=== PATIENT | male | born 1980 | race Caucasian/White ===

== ENCOUNTER 2019-09-27 11:41 | Emergency (ER) | payer MEDICAID, SELFPAY ==
[2019-09-27 11:42] VITALS: BP 162/104; PULSE 62; PULSE 70; RESP 14; TEMP 36.1; O2SAT 98; O2SAT 99; BMI 35.9
--- NOTE | 2019-09-27 11:48 | ED.VIS.GEN ---
History of Present Illness Chief Complaint: Laceration Informant: Patient Onset: Today Current Severity: Mild Maximum Severity: Mild Narrative: Patient presents with laceration to the right hand. He states he had used a pocket knife and laid it down on the sofa. When he went to stand up he cut his right hand with a pocket knife. He is right-hand dominant. He is unsure of his last tetanus update. He denies paresthesias or weakness. Past Medical History - Allergies and Home Meds Allergies/Adverse Reactions: Allergies No Known Allergies Allergy (Verified 09/27/19 11:42) Primary Care Physician: Main Vilchis MD [Primary Care Provider] - Lives: With Family Smoking Status: Never smoker Review of Systems General: Denies: Chills, Fever Eyes: Denies: Visual changes - bilaterally ENT: Denies: Bilateral ear pain Cardiovascular: Denies: Chest pain Respiratory: Denies: Dyspnea Gastrointestinal: Denies: Abdominal pain Musculoskeletal: Reports: Extremity Pain Skin: Reports: Wounds Neurological: Denies: Weakness, Parasthesia Hematologic: Denies: Easy bruising, Easy bleeding Allergy: Denies: Uticaria Physical Exam Vital Signs/Narrative: Vital Signs Temp Pulse Resp BP Pulse Ox 09/27/19 11:42 96.9 F L 70 14 162/104 H 99 Inital Vital Signs reviewed: Yes General: Well nourished, Well developed Head: Normocephalic ENT: Moist mucous membranes Neck: Supple Cardiovascular: Regular rate, Regular rhythm Respiratory: No distress Extremities: - - 4 mm laceration to the base of the hyperthenar eminence on the right palm. Mild bleeding noted. Good cap refill distally with full range of motion. Neurological: Alert, Oriented x3, Normal Strength, Normal Sensation Psychological: Normal affect Diagnostic/Tx/Re-eval - Medical Decision Making Tetanus update is provided. Laceration to the right hand is cleansed and sealed with Dermabond. Dressing is applied. Wound care is discussed. ED Disposition - Plan for ED Patient: Disposition: Home or Assisted Living Diagnosis: Hand laceration Instructions: ED Laceration Ext Skin Glue
[2019-09-27] MEDS: Diphth,Pertuss(Acell),Tet Vac 0.5 ML Vial IM (12:05)
== END 2019-09-27 12:22 | disposition home or self-care (01) ==
LOC: ED 12:17
PROVIDERS: Emergency Provider Emergency Medicine; PCP Internal Medicine
DX: S61.411A Laceration without foreign body of right hand, initial encounter (principal); W26.0XXA Contact with knife, initial encounter; Y93.9 Activity, unspecified; Y92.9 Unspecified place or not applicable
CPT/HCPCS: 12001; 90715; 99283

== ENCOUNTER 2020-01-28 19:32 | Emergency (ER) | payer OTHER, MEDICAID, SELFPAY ==
[2020-01-28 19:34] VITALS: BP 174/96; PULSE 77; RESP 18; TEMP 36.2; O2SAT 99; BMI 38.9
--- NOTE | 2020-01-28 20:00 | RAD_ITS ---
STUDY: X-RAY - RIGHT KNEE REASON FOR EXAM: Male, 39 years old. Fall. Right knee pain and bruising. TECHNIQUE: 4 view(s) of the knee. COMPARISON: None. FINDINGS: Normal visualized distal femur. Normal visualized proximal tibia and fibula. Normal proximal tibiofibular articulation. There is no demonstrated fracture. Normal medial femorotibial compartment. Normal lateral femorotibial compartment. There is mild degenerative arthrosis of the patellofemoral articulation. The soft tissue structures are unremarkable. RAD/Knee 4 or More Views IMPRESSION: No fracture. Mild patellofemoral spurring. Electronically Signed: Garland Soler MD at 22:31 EST , Service support ,
--- NOTE | 2020-01-28 22:40 | DCINST.ED_ITS ---
ED Disposition - Plan for ED Patient: Instructions: ED Sprain Knee Referrals: Sherie Wiley MD [Primary Care Provider] - [facility] [GROUP OF PHYSICIANS] -
--- NOTE | 2020-01-28 22:40 | ED.DEP ---
ED Disposition - Plan for ED Patient: Instructions: ED Sprain Knee Referrals: Sherie Wiley MD [Primary Care Provider] - [facility] [GROUP OF PHYSICIANS] -
--- NOTE | 2020-01-28 22:42 | ED.VISSUMM ---
- ER Visit Summary Date of Service: 01/28/20 Chief Complaint: Right knee injury History of Present Illness: The patient is a 39 M presenting after right knee injury. Patient states he was at work. He tripped over a cord of a fan and fell landing on his right knee. He has been able to ambulate since the fall. Denies other injuries. Physical Examination: Vitals are stable. Patient is afebrile. Alert no acute distress. HEENT exam is unremarkable. Neck is supple. Lungs are clear and equal bilaterally. Heart is regular rate and rhythm. Extremities mild right lateral and anterior knee tenderness. Active full range of motion. Normal distal pulses. Skin is warm and dry. Remainder of exam is unremarkable. Emergency Department Course and Treatment: X-ray right knee shows No fracture. Mild patellofemoral spurring. He is given Naprosyn. He is advised to ice and elevate. Advised to follow-up with [facility]. He declined crutches. Advised return to the ED for worsening complaints. Disposition: Discharge home Impression: Right knee contusion This note was generated with [employer] dictation software. It may contain incorrect words, spelling, and punctuation that were not noted in review of the chart prior to signing ED Disposition - Plan for ED Patient: Instructions: ED Sprain Knee Referrals: [facility] [GROUP OF PHYSICIANS] - Sherie Wiley MD [Primary Care Provider] -
[2020-01-28] MEDS: Naproxen 500 MG Tablet PO (22:49)
[2020-01-28 22:50] VITALS: BP 135/68; PULSE 65; RESP 17; O2SAT 98
== END 2020-01-28 22:50 | disposition home or self-care (01) ==
LOC: ED 20:36
PROVIDERS: Emergency Provider Emergency Medicine; PCP Family Medicine
DX: S80.01XA Contusion of right knee, initial encounter (principal); W01.0XXA Fall on same level from slipping, tripping and stumbling without subsequent striking against object, initial encounter; Y93.9 Activity, unspecified; Y92.9 Unspecified place or not applicable
CPT/HCPCS: 73564; 99282

== ENCOUNTER 2021-05-10 09:21 | Emergency (ER) | payer MEDICAID, SELFPAY ==
[2021-05-10 09:23] VITALS: BP 187/113; PULSE 71; RESP 16; TEMP 36.3; O2SAT 98; BMI 38.3
--- NOTE | 2021-05-10 09:44 | EDS_ITS ---
HPI History of Present Illness Chief Complaint: Other, Pain/Inj Detail of Chief Complaint: Facial injury after a fall today Informant: patient Narrative Narrative: Patient presents to the emergency department after sustaining a fall this morning around 3 AM. Patient states that he had use the bathroom and slipped on the floor and struck his face on the side of the tub. No loss of consciousness. He did have bleeding from both sides of the nose that stopped pretty quickly. Patient felt a crunching sensation when he hit the tub. He is not on blood thinners. He denies neck pain. He denies any other injuries. [facility] Home Medications NK 01/28/20 [History Last Taken Unknown] Allergy/AdvReac Type Severity Reaction Status Date / Time No Known Allergies Allergy Verified 05/10/21 09:22 Social History Smoking Status: Never smoker ROS ROS ED Constitutional Constitutional ED: Reports systems reviewed and no addt'l complaints, except as documented; Denies body ache(s), change in weight or chills Eyes Eyes: Denies acute decrease in peripheral vision, change in vision, double vision or loss of vision ENT ENT ED: Reports none and other Details: Nasal pain after injury ; Denies ear pain, lip swelling, loss taste/smell, neck pain, otalgia or sore throat Cardiovascular Cardiovascular: Reports none; Denies abdominal pain, chest pain with activity, leg edema, lightheadedness, palpitations, rapid heart rate or syncope Respiratory/Chest Respiratory/Chest: Reports none; Denies change in mental status, dry cough, dyspnea, hemoptysis, shortness of breath at rest or shortness of breath with exertion Gastrointestinal Gastrointestinal: Reports none; Denies abdominal pain, change in stool character, diarrhea, hematemesis, hematochezia, melena, rectal bleeding or vomiting Genitourinary Genitourinary ED: Reports none; Denies abdominal discomfort, anuria, dysuria, genital pain or polyuria Musculoskeletal Musculoskeletal: Reports none; Denies arthralgias, back pain, difficulty walking, extremity pain, muscle weakness or myalgias Integumentary Reports none; Denies abscess or rash Neurologic Neurologic: Reports none; Denies abnormal gait, confusion, focal weakness, frequent falls, headache(s), loss of vision, numbness, paresthesias, radicular pain, vertigo or weakness Psychiatric Psychiatric: Reports systems reviewed and no addt'l complaints, except as documented and none; Denies behavioral changes, confusion, difficulty concentrating, hallucinations, suicidal ideation, tactile hallucinations or visual hallucinations Endocrine Endocrinology: Denies none, cold intolerance, excessive sweating, fatigue or heat intolerance Hematologic/Lymphatic Hematologic/Lymphatic: Reports none; Denies anemia, easy bleeding or easy bruising Allergic/Immunologic Allergic/Immunologic ED: Denies as per HPI, none, lip swelling, mouth swelling, throat swelling, tongue swelling or hives EXAM Physical Exam Const Vital Signs: 05/10/21 09:23 Temperature 97.3 F L Temperature Source Temporal Pulse Rate 71 Respiratory Rate 16 Blood Pressure 187/113 H Blood Pressure Mean 137 Pulse Ox 98 Oxygen Delivery Method Room Air Positive well nourished and well developed General Appearance ED: well developed and NAD HEENT Reports TM's clear and moist mucous membranes HEENT Narrative: Patient has minimal tenderness over the tip of the nasal bone with no obvious deformity and no obvious crepitus noted on exam. There is no septal hematoma. Patient has no tenderness over the zygomatic arches or the orbits. No tenderness over the maxilla. Midface is stable. No tenderness over the mandible. normocephalic and atraumatic; Negative for trauma or tenderness Tympanic Membrane ED: Yes TM's clear Eyes PERRL and EOMs intact bilaterally General Eye ED: Negative for pale conjunctiva or scleral icterus Neck no lymphadenopathy, supple and no JVD General: Negative for tenderness Chest Wall inspection of chest normal and palpation of chest normal Chest: Negative for tenderness Resp normal respiratory effort and clear to auscultation bilaterally Effort and Inspection: Negative for respiratory distress or pain with movement Auscultation: Negative for rhonchi, wheezes or diminished lung sounds Cardio regular rate, regular rhythm, S1 normal heart sound, S2 normal heart sound and no murmurs Peripheral Pulses: pulses 2+ throughout GI normal to inspection, nondistended, normoactive bowel sounds, soft to palpation, non-tender, non-distended and no masses Back/Spine no CVA tenderness and no thoracic nor lumbar tenderness Extremity normal to inspection General Extremety ED: Negative for edema General Extremity: Negative for edema Neuro oriented x3, CN's II-XII intact bilaterally, no sensory deficits noted and gait normal Sensorium / Orientation: awake, alert, oriented to person, oriented to place and oriented to time Motor Exam: strength 5/5 throughout and strength abnormal Psych mental status grossly normal Skin no rashes or lesions noted and no wounds MDM MDM MDM Narrative Medical decision making narrative: Clinically the nose does not appear fractured or deformed. We discussed obtaining x-rays versus conservative treatment and follow-up with ENT. At this point is not having any difficulty breathing. We will forego x-rays. I suspect likely a nasal contusion although cannot rule out a nondisplaced nasal bone fracture. No other evidence of trauma to the facial bones noted. Patient advised use ibuprofen Tylenol for discomfort. He is to use ice to the area. Patient will be referred to ENT for follow-up. Discharge Plan Triage Chief Complaint: Other, Pain/Inj ED Provider: Chris Solorzano Dx/Rx/DC Orders Clinical Impression: Contusion of nose Instructions: ED NASAL CONTUSION vs FX No X-ray Prescriptions: No Action NK RF: 0 Primary Care Provider: Sherie Wiley Referrals: Sherie Wiley MD [Primary Care Provider] - Tiago Wilks MD [STAFF PHYSICIAN] - 5-7 Days Disposition Disposition: Home, Self Care
== END 2021-05-10 10:09 | disposition home or self-care (01) ==
LOC: ED 10:06
PROVIDERS: Emergency Provider Emergency Medicine; PCP Family Medicine; Visit Provider Emergency Medicine
DX: S00.33XA Contusion of nose, initial encounter (principal); W01.190A Fall on same level from slipping, tripping and stumbling with subsequent striking against furniture, initial encounter; Y93.9 Activity, unspecified; Y92.012 Bathroom of single-family (private) house as the place of occurrence of the external cause
CPT/HCPCS: 99282

== ENCOUNTER 2022-05-17 11:30 | Outpatient (RCR) | payer OTHER, MEDICAID, SELFPAY ==
--- NOTE | 2022-03-13 12:51 | HP.OTEVAL ---
Patient's Visit Information CYRIL ROTH is a 41 year old M, referred to Occupational Therapy by EUGENIA DODD, with a diagnosis of left distal biceps tendon rupture. Date of Evaluation: 03/13/22 Occupational Therapist: Vicky Shah, EMERYR/Linda, CHT - Subjective This 41 year old male was seen for OT eval with dx of left distal biceps rupture. 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 Pt work for [employer], typically puts parts together and lifts 10-40#. Pt states DOI [id number]. [facility] [place] [facility] to Dr. Dodd for sx on 2021. pt has children ages 10, 12, 13, 15. pt is right handed. with pt. to provide support. pt reports limitations with use of left UE with ADLs and IADLs at this time. pt reports understanding of lifting precautions of 8oz. pt would like to return to his PLOF. - Pain left arm 2 Pain Intensity Range: 0, 2 - ROM Elbow: right+5/140 left -30/110 Forearm: right supination 70* pron WNL left supination 20* pronation 40 Wrist: right/left WNL - Strength Grill Chef: right 130# left NT Lateral Pinch: right 18# left NT Tripod Pinch: right 20# left NT Strength Comments: will test left at later date - Sensation Sensation Comments: pt reports dorsal forearm tingling ( possible from strap on brace) - Quick DASH-Disab of Arm,Shoulder& Hand Quick DASH Score: 62.5000 - Goals Goal:100% adherence to protocol: Yes Comment: Dr. Dodd Distal Biceps repair Protocol Goal:Daily scar massage when approriate: Yes Goal:ROM equal to unaffected hand: Yes Goal:Grill Chef/Pinch strength at least 75% of unaffected hand: Yes Goal:No pain with affected hand use: Yes Goal:Full use of affected hand in daily activities including: Yes - Rehabilitation General Assessment: pt arrives s/p 3 weeks from left distal biceps tendon repair. pt demo need for skilled OT services 1-2x week for 8 weeks to assist pt in recovery from distal biceps repair to return pt to PLOF. Today therapist ed. pt on Dr. Dodd's distal biceps protocol, and reviewed allowed exercise of left elbow ROM with forearm in pronation, and forearm supination/pronation with elbow at 90* and at his side, therapist ed. pt to allow for squeeze of sponge, and scar mtg. pt was given handout and protocol, pt and pts demo understanding agree to POC. Rehabilitation Potential: Good - Anticipated Interventions A/AAROM/PROM, Strengthening, Scar Care, Triggerpoint Release, Modalities, Orthoses, Joint Protection/Energy Conservation, Ergonomic Education, Education re Diagnosis, Caregiver Training, Home Program - Visit Plan Frequency: 1-2x /Week Duration: 2 Months TEXT: Thank you for the opportunity to evaluate your patient. For Medicare and Medicare HMO plans, please review the plan of care and approve it. It will need to be FAXED BACK to us at [phone] for Medicare purposes. Please let me know if there are questions or concerns regarding this plan of care. Physician Signature: Date:
--- NOTE | 2022-04-03 09:41 | OTREVAL_ITS ---
EUGENIA DODD, It has been my pleasure to treat CYRIL Cervantes VIA over the last 7 visits for left distal biceps tendon rupture. Please see the progress note below for an update on the occupational therapy plan of care! Subjective: pt arrives 6 weeks s/p from distal biceps tendon repair. pt states he is feeling good. states compliance with his scapular stabilization home program including horizontal abduction, ER/IR with t-bands, and elbow at 90* and shoulder extension with bands, all focusing on scapular setting. pt states he is performing 3x a day - and end range motion every hour. pt is using hinge elbow brace only out of the house and at night (therapist advised with his children around to wear it) Objective/Function: left forearm supination 60 *. pronation 60* ( right 70*). left elbow -5/ 130* with PROM pt can get 140* elbow flexion. left open hearth worker strength 65# right 95#. pt making good gains with his ROM. therapy will transition pt to PRE as allows based on pts progress and healing. Plan Frequency: 1-2x /Week Duration: 4 Weeks Plan: Dr. Dodd Distal Bicep Repair Protocol. 2-4 weeks s/p. Ed pt on finger, thumb, wrist and shoulder ROM with forearm Neutral. NO Lifting over 8oz (cell phone). Begin Pronation/Supination with elbow at 90* flexion to tolerance. *Begin elbow flexion/extension to tolerance with forearm in supination (6x per day). May initiate open hearth worker strength (sponge). Progress to full elbow extension in pronation as tolerated after achieved in supination. Jessica pt can easily attain full extension without pain, orthosis can be d/c during the day. Continue sling until 4 weeks or until full extension of elbow is achieved if longer than 4 weeks. 4 weeks post-op. Continue to work on elbow extension with elbow pronated. Begin scapular stabilization program including horizontal abduction, ER/IR with t-bands, and elbow at 90* and shoulder extension with bands, all focusing on scapular setting. Once full AROM is achieved with full rotation, and elbow extension in pronation, pt does not need to return until beginning strengthening,. 8 week post-op Begin strengthening up to 10# and advanced as tolerated between 8-12 weeks s/p. Goals - Goals Patient Goals: Decrease Pain, Return to Work, Use Hand/Wrist/Arm Normally Again Goal:100% adherence to protocol: Yes Goal:Daily scar massage when approriate: Yes Goal:ROM equal to unaffected hand: Yes Goal:Rag Sorter/Pinch strength at least 75% of unaffected hand: Yes Goal:No pain with affected hand use: Yes Goal:Full use of affected hand in daily activities including: Yes Anticipated Interventions Anticipated Interventions: A/AAROM/PROM, Strengthening, Scar Care, Triggerpoint Release, Modalities, Orthoses, Joint Protection/Energy Conservation, Ergonomic Education, Education re Diagnosis, Caregiver Training, Home Program Please do not hesitate to contact me at [phone] by phone or if you have questions or concerns regarding this new plan of care! Sincerely, Vicky Shah OTR/L, CHT
--- NOTE | 2022-05-17 11:53 | OTREVAL_ITS ---
EUGENIA PRINCE, It has been my pleasure to treat CYRIL ROTH over the last 5 visits for left distal biceps tendon rupture. Please see the progress note below for an update on the occupational therapy plan of care! Subjective: Pt arrives 12 weeks and 2 days s/p from distal biceps tendon repair. Pt is consistent in attending therapy sessions and reports compliance with His HEP of scapular stabilization program including horizontal abduction, ER/IR with t-bands, and elbow at 90* and shoulder extension with bands, all focusing on scapular setting-. Blue t-band resistance. pt denies pain, tingling or numbness. pt reports IND with ADLs and IADLS. only in Hinge brace when out of home and when he is sleeping to increase comfort when rolling and sleeping on his left side. Objective/Function: LUE: sup: 89* Pro: 78* ( feeling slight pull in forearm). Elbow ROM -5/135 increase from -30/110*. 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 pt demo functional ROM of left UE following distal biceps tendon repair-. fit2 peak forces in pound of resistance. right biceps 39# left 22#. right triceps 29# left 29#. right shoulder flex 12# left 12#. pt working on HEP of scapular stabilization program blue t-band doing at least 2x a day. In OT pt working on PRE as tolerated- work simulation with ergo with lifting. pt has done well. Plan Visits in this POC: will see dr castroendatalya Plan: pts heaviest work lift is 20#. in simulation in OT pt feel good with lift of this wt. pt to see for further therapy guidance and/or release to work. Goals - Goals Patient Goals: Decrease Pain, Return to Work, Use Hand/Wrist/Arm Normally Again Goal:100% adherence to protocol: Yes Goal:Daily scar massage when approriate: Yes Goal:ROM equal to unaffected hand: Yes Goal:Candy Decorator/Pinch strength at least 75% of unaffected hand: Yes Goal:No pain with affected hand use: Yes Goal:Full use of affected hand in daily activities including: Yes Anticipated Interventions Anticipated Interventions: A/AAROM/PROM, Strengthening, Scar Care, Triggerpoint Release, Modalities, Orthoses, Joint Protection/Energy Conservation, Ergonomic Education, Education re Diagnosis, Caregiver Training, Home Program Please do not hesitate to contact me at [phone] by phone or if you have questions or concerns regarding this new plan of care! Sincerely, Vicky Shah OTR/L, CHT
--- NOTE | 2022-08-10 13:45 | HP.OTDCSUM ---
It has been my pleasure to treat CYRIL ROTH under orders from EUGENIA PRINCE, for the diagnosis of left distal biceps tendon rupture for a total of 5 visit(s). Please see the following information for a summary of their discharge status. pt last seen on 05/17/22 Due to time lapse in services pt d/c at this time. % Improvement: 85 Objective/Function: LUE: sup: 89* Pro: 78* ( feeling slight pull in forearm). Elbow ROM -5/135 increase from -30/110*. 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 pt demo functional ROM of left UE following distal biceps tendon repair-. fit2 peak forces in pound of resistance. right biceps 39# left 22#. right triceps 29# left 29#. right shoulder flex 12# left 12#. pt working on HEP of scapular stabilization program blue t-band doing at least 2x a day. In OT pt working on PRE as tolerated- work simulation with ergo with lifting. pt has done well. Patient Goals: Decrease Pain, Return to Work, Use Hand/Wrist/Arm Normally Again Goal:100% adherence to protocol: Yes Goal:Daily scar massage when approriate: Yes Goal:ROM equal to unaffected hand: Yes Goal:Director Of Optimization/Pinch strength at least 75% of unaffected hand: Yes Goal:No pain with affected hand use: Yes Goal:Full use of affected hand in daily activities including: Yes Plan: pts heaviest work lift is 20#. in simulation in OT pt feel good with lift of this wt. pt to see for further therapy guidance and/or release to work. If there are questions or concerns regarding this patient's occupational therapy, please fell free to call me at [phone]. Thank you for the referral of this patient. Sincerely, Vicky Shah, OTR/L, CHT
== END 2022-05-17 19:00 | disposition home or self-care (01) ==
LOC: OT 11:30
PROVIDERS: PCP Family Medicine
DX: S46.212D Strain of muscle, fascia and tendon of other parts of biceps, left arm, subsequent encounter (principal)
CPT/HCPCS: 97110; 97140; 97166; 97530

== ENCOUNTER 2023-06-03 09:08 | Emergency (ER) | payer MEDICAID, SELFPAY ==
[2023-06-03 09:09] VITALS: BP 179/90
[2023-06-03 09:11] VITALS: BP 190/92; PULSE 72; RESP 18; TEMP 35.2; O2SAT 100; BMI 39.2
--- NOTE | 2023-06-03 09:15 | CT_ITS ---
STUDY: CT ABDOMEN AND PELVIS WITHOUT CONTRAST REASON FOR EXAM: Male, 42 years old. LT FLANK PAIN RADIATION DOSAGE (If Supplied By Facility): CTDIvol = ( 22.12 ) mGy, DLP = ( 1221.31 ) mGycm TECHNIQUE: Transaxial images were obtained from the dome of the diaphragm to the symphysis pubis without oral contrast, and without intravenous contrast. Sagittal and coronal images were reconstructed. Individualized dose optimization techniques were used for this CT. COMPARISON: None. FINDINGS: The visualized lung bases are unremarkable. The visualized portions of the heart are within normal limits. There is hepatomegaly with diffuse hepatic enlargement. There is decreased attenuation of the liver consistent with steatosis. Normal gallbladder and extrahepatic biliary system. Normal spleen. There is enlargement of the head and uncinate process of the pancreas with daria-pancreatic edema suggesting acute pancreatitis. Normal bilateral adrenal glands. Normal right kidney. There is mild hydronephrosis or parapelvic cysts of the left kidney. Normal visualized stomach. Normal small intestine. Normal colon. The appendix is visualized and appears normal. There is atherosclerotic calcification of the abdominal aorta, without a demonstrated aneurysm. Normal inferior vena cava. Normal retroperitoneum. Normal urinary bladder. There is no free fluid in the abdomen or pelvis. Normal abdominal wall. There are diffuse degenerative changes of the visualized lumbar spine. CT/Abdomen/Pelvis without Cont IMPRESSION: Acute pancreatitis. No fluid collection or pseudocyst. Liver is enlarged with fatty infiltration. No biliary dilation. Mild left hydronephrosis versus parapelvic cysts. No stones are seen. Electronically Signed: Garland Soler MD at 11:00 EDT ,
--- NOTE | 2023-06-03 09:16 | EDS_ITS ---
HPI History of Present Illness Chief Complaint: Flank Pain Informant: patient Narrative Narrative: Patient presents with left flank pain. He states for the past week or 2 has had some mild pain in his left back. This morning he had more severe pain that wraps around to the groin. He denies history of kidney stones. No urinary changes. No prior abdominal surgeries. [facility] Medical History (Updated 06/03/23 @ 12:[address] Jacquie Crouch MD) Diabetes Hypercholesteremia Hypertension Home Medications hydrocodone-acetaminophen 5-325mg 5mg-325mg 1 tab PO Q6H PRN PRN Pain 3 days #10 TABLETS 06/03/23 [Rx Last Taken Unknown] ondansetron 4 mg disintegrating tablet 4 mg PO Q8H PRN PRN Nausea #10 tabs 06/03/23 [Rx Last Taken Unknown] Allergy/AdvReac Type Severity Reaction Status Date / Time No Known Allergies Allergy Verified 06/03/23 09:15 Surgical History (Updated 06/03/23 @ 09:17 by Miladis Ley) History of surgery on arm Social History Smoking Status: Never smoker ROS ROS ED Constitutional Constitutional ED: Denies chills or fever(s) Eyes Eyes: Denies change in vision or discharge from eye(s) ENT ENT ED: Denies discharge from eye(s), rhinorrhea or sore throat Cardiovascular Cardiovascular: Denies chest pain or palpitations Respiratory/Chest Respiratory/Chest: Denies cough or dyspnea Gastrointestinal Gastrointestinal: Reports abdominal pain, nausea and vomiting; Denies diarrhea Genitourinary Genitourinary ED: Denies dysuria Musculoskeletal Musculoskeletal: Reports back pain; Denies extremity pain Integumentary Denies Abrasions or rash Neurologic Neurologic: Denies headache(s) or weakness Psychiatric Psychiatric: Denies anxiety or depression Allergic/Immunologic Allergic/Immunologic ED: Denies lip swelling or urticaria EXAM Physical Exam Const Vital Signs: 06/03/23 09:11 06/03/23 09:09 06/03/23 11:09 Temperature 95.3 F L Temperature Source Temporal Pulse Rate 72 60 Respiratory Rate 18 18 Blood Pressure 190/92 H 179/90 H 171/92 H Blood Pressure Mean 124 119 118 Pulse Ox 100 92 Oxygen Delivery Method Room Air Room Air Positive well nourished and well developed General Appearance ED: well developed HEENT Reports moist mucous membranes Eyes EOMs intact bilaterally Chest Wall inspection of chest normal and palpation of chest normal Resp normal respiratory effort and clear to auscultation bilaterally Cardio regular rate and regular rhythm GI non-tender Palpation: soft Back/Spine General Back: CVA tenderness left Extremity normal to inspection Neuro oriented x3 and no sensory deficits noted Motor Exam: strength 5/5 throughout Psych mental status grossly normal Skin no rashes or lesions noted MDM MDM MDM Narrative Medical decision making narrative: IV line established. Patient given morphine, Toradol, Zofran, IV fluids. Labwork obtained to evaluate for leukocytosis, anemia, and electrolyte derangement. Urinalysis obtained to evaluate for infection/hematuria. CT flank obtained to evaluate for potential renal stone. Differential diagnosis includes diverticulitis, bowel obstruction, ureterolithiasis. History & Record Review Discussion w/independent historian: Patient Lab Data Attestation: I reviewed the patient's lab results. Labs: Laboratory Results - last 24 hr 06/03/23 06/03/23 06/03/23 09:17 10:40 10:56 WBC 8.3 RBC 5.54 Hgb 15.2 Hct 45.8 MCV 82.7 MCH 27.4 MCHC 33.2 RDW Std Deviation 39.9 RDW Coeff of Lesly 13.2 Plt Count 278 MPV 11.0 Immature Gran % (Auto) 0.500 Neut % (Auto) 52.0 Lymph % (Auto) 33.7 [place] % (Auto) 11.2 H Eos % (Auto) 2.1 Baso % (Auto) 0.5 Absolute Neuts (auto) 4.3 Absolute Lymphs (auto) 2.79 Nucleated RBC % 0 Sodium 139 Potassium 3.6 Chloride 105 Carbon Dioxide 28.0 Anion Gap 6 BUN 17 Creatinine 1.06 Estim Creat Clear Calc 125.83 Est GFR (MDRD) Af Amer 98 Est GFR (MDRD) Non-Af 81 BUN/Creatinine Ratio 16.0 Glucose 149 H Calcium 9.3 Total Bilirubin 0.80 Direct Bilirubin 0.19 AST 17 ALT 29 Alkaline Phosphatase 93 Total Protein 8.0 Albumin 3.6 Globulin 4.4 H Lipase 46 Urine Color Yellow Urine Clarity Clear Urine pH 6.5 Ur Specific [place] 1.010 Urine Protein 30 H Urine Glucose (UA) Normal Urine Ketones Negative Urine Occult Blood Negative Urine Nitrite Negative Urine Bilirubin Negative Urine Urobilinogen Normal Ur Leukocyte Esterase 25 H Urine RBC 0 SEEN Urine WBC 0 SEEN Ur Squamous Epith Cells 0 SEEN Urine Bacteria 0 SEEN Urine Mucus 0 SEEN POC Glucose 137 H Radiography Diagnostic Testing: Clinical Impression(s) from Imaging Studies Abdomen/Pelvis CT 06/03/23 09:15 IMPRESSION: Acute pancreatitis. No fluid collection or pseudocyst. Liver is enlarged with fatty infiltration. No biliary dilation. Mild left hydronephrosis versus parapelvic cysts. No stones are seen. Electronically Signed: Garland Soler MD at 11:00 EDT , Treatment and Re-Evaluation :: On repeat evaluation patient resting comfortably. Pain is improved. CBC was normal white count 8.3 with normal differential. Hemoglobin is 15.2. Chemistry studies unremarkable. Glucose is 149. LFTs normal. Lipase is normal at 46. Urinalysis reveals no evidence of acute infection and no hematuria. CT flank reveals evidence of mild pancreatic inflammation consistent with acute pancreatitis. Mild left hydronephrosis is noted versus parapelvic cyst. No obvious stones. Test results discussed with patient and spouse at bedside. He will follow a bland diet and I will give him analgesics and antiemetics. He is encouraged to increase p.o. fluids to help flush his kidney. I advised him that he may have had a stone that recently passed. He was advised to watch for epigastric pain with vomiting which may be more indicative of pancreatitis. Return instructions are given. I would like him to follow-up with his doctor within the next 1 to 2 weeks for repeat evaluation. Discharge Plan Triage Chief Complaint: Flank Pain ED Provider: Jacquie Crouch Dx/Rx/DC Orders Clinical Impression: Flank pain Instructions: ED Flank Pain, Uncertain Cause Prescriptions: New hydrocodone-acetaminophen 5-325 mg tablet 1 tab PO Q6H PRN PRN (Reason: Pain) 3 Days Qty: 10 0RF ondansetron 4 mg tablet,disintegrating 4 mg PO Q8H PRN PRN (Reason: Nausea) Qty: 10 0RF Primary Care Provider: Sherie Wiley Referrals: Sherie Wiley MD [Primary Care Provider] - 1-2 Weeks Disposition Disposition: Home, Self Care
[2023-06-03 09:28] LABS: Absolute Lymphocyte Count 2.79 X10^3/uL (0.83-4.51); Absolute Neutrophil Count 4.3 X10^3/uL (2.0-7.7); Basophil# 0.04 X10^3/uL; Basophil% 0.5 % (0-1); Eosinophil# 0.17 X10^3/uL; Eosinophils% 2.1 % (0-5); Hematocrit 45.8 % (40-54); Hemoglobin 15.2 g/dL (13.0-16.5); Lymphocyte # 2.79 X10^3/ul (0.83-4.51); Lymphocyte % 33.7 % (19-41); Mean Corp Hgb Conc 33.2 g/dL (32-36); Mean Corpuscular Hgb 27.4 pg (27.0-32.0); Mean Corpuscular Volume 82.7 fL (80-94); Monocyte# 0.93 X10^3/uL; Monocyte% 11.2 % (0-10); NRBC Flagged by Analyzer 0 % (0-5); Neutrophil # 4.32 X10^3/uL (2.7-7.7); Platelet Count 278 K/mm3 (150-450); RBC Distribution Width CV 13.2 % (11.6-14.6); RBC Distribution Width SD 39.9 fl (35.1-43.9); Red Blood Count 5.54 M/mm3 (4.6-6.2); White Blood Count 8.3 K/mm3 (4.4-11.0)
[2023-06-03 09:36] LABS: Anion Gap 6 (5-15); BUN 17 mg/dL (7-18); Calcium,Total 9.3 mg/dL (8.5-10.1); Chloride 105 mmol/L (98-107); Creatinine, Serum 1.06 mg/dL (0.70-1.30); EST Glomerular Filtration Rate 81 mL/min (>60); Est Glom Filt Rate - Afr Amer 98 mL/min (>60); Estimated Creatinine Clearance 125.83 ml/min; Glucose 149 mg/dL (74-106); Potassium 3.6 mmol/L (3.5-5.1); Sodium Level 139 mmol/L (136-145)
[2023-06-03] MEDS: Ondansetron 4 MG/2 ML Vial IV (09:36)
[2023-06-03] MEDS: Ketorolac 30 MG/ML Syringe IV (09:36)
[2023-06-03] MEDS: Morphine 4 MG/ML Syringe IV (09:36)
[2023-06-03] MEDS: 0.9% Normal Saline (1000mL) 1,000 ML 250 ML IV (09:36)
[2023-06-03 10:57] LABS: Bedside Glucose 137 mg/dL (74-106)
[2023-06-03 11:00] LABS: Bacteria 0 SEEN /hpf (None Seen); Mucous, Urine 0 SEEN /hpf (<or=2+); Red Blood Cells-Urine 0 SEEN /hpf (0-5); Squamous Epithelial Cells - UA 0 SEEN /hpf (0-5); White Blood Cells 0 SEEN /hpf (0-5)
[2023-06-03 11:01] LABS: Color, Urine Yellow (Yellow); Glucose, Dipstick Normal (Normal); Ketone-Dipstick Negative (Negative); Leukocyte Esterase-Dipstick 25 /ul (Negative); Nitrite-Dipstick Negative (Negative); Occult Blood-Urine Negative /ul (Negative); Protein-Dipstick 30 mg/dl (Negative); Urine Bilirubin Dipstick Negative (Negative); Urine Clarity Clear (Clear); Urine Urobilinogen Normal (Normal); Urine pH 6.5 (5.0 - 8.0)
[2023-06-03 11:09] VITALS: BP 171/92; PULSE 60; RESP 18; O2SAT 92
[2023-06-03 11:20] LABS: AST(SGOT) 17 U/L (15-37); Alanine Aminotransfer ALT/SGPT 29 U/L (16-61); Albumin, Serum 3.6 g/dL (3.2-5.0); Alkaline Phosphatase 93 U/L (45-117); Bilirubin, Direct 0.19 mg/dL (0.00-0.30); Globulin 4.4 g/dL (2.2-4.2); Lipase 46 U/L (13-75)
[2023-06-03 12:43] VITALS: BP 171/92; PULSE 60; RESP 18; TEMP 36.6; O2SAT 92
== END 2023-06-03 12:44 | disposition home or self-care (01) ==
PROVIDERS: Emergency Provider Emergency Medicine; PCP Family Medicine; Visit Provider Emergency Medicine
DX: E11.9 Type 2 diabetes mellitus without complications (principal); I10 Essential (primary) hypertension; R10.9 Unspecified abdominal pain
CPT/HCPCS: 74176; 80048; 80076; 81001; 82962; 83690; 85025; 96361; 96374; 96375; 99283; J7030; A4216; J2405